=== PATIENT | female | born 1950 | race Caucasian/White ===

== ENCOUNTER → 2020-10-13 | Day surgery (SDC) | payer MEDICARE, OTHER ==
[~2020-10-13] MED LIST: ASPIRIN81 MG PO; ATORVASTATIN CA20 MG PO; CALCIUM CARBON500 MG PO; IRBESARTAN150 MG PO; IRON325 M1 PO; LANTUS 3ML100 UNITS/ SQ; METFORMIN HCL500 MG PO; MULTI-VITAMIN1 EACH PO; NIFEDIPINE ER30 M1 PO; NOVOLOG100 UNIT/1 SC; OR PHACO EYE KIT ONE; PREOP PHACO EYE KIT ONE; VITAMIN B122500 MCG PO; VITAMIN D325 MCG PO
[2020-10-13 13:00] VITALS: BP 137/71
== END | disposition home or self-care (01) ==
LOC: OR 11:51
PROVIDERS: ATTEND Ophthalmology
DX: H25.12 Age-related nuclear cataract, left eye (principal); I10 Essential (primary) hypertension; E11.9 Type 2 diabetes mellitus without complications; K76.0 Fatty (change of) liver, not elsewhere classified; E78.5 Hyperlipidemia, unspecified; Z88.2 Allergy status to sulfonamides; Z01.812 Encounter for preprocedural laboratory examination; Z20.822 Contact with and (suspected) exposure to COVID-19
CPT/HCPCS: 36415; 66984; 82948; U0002; V2632

== ENCOUNTER → 2020-10-27 | Day surgery (SDC) | payer MEDICARE, OTHER ==
[2020-10-27 14:05] VITALS: BP 121/80
== END | disposition home or self-care (01) ==
LOC: OR 12:06
PROVIDERS: ATTEND Ophthalmology
DX: H25.11 Age-related nuclear cataract, right eye (principal); I10 Essential (primary) hypertension; E78.5 Hyperlipidemia, unspecified; E11.9 Type 2 diabetes mellitus without complications; K21.9 Gastro-esophageal reflux disease without esophagitis; M19.90 Unspecified osteoarthritis, unspecified site; F41.9 Anxiety disorder, unspecified; Z88.2 Allergy status to sulfonamides; Z01.812 Encounter for preprocedural laboratory examination; Z20.822 Contact with and (suspected) exposure to COVID-19; Z79.4 Long term (current) use of insulin; Z79.82 Long term (current) use of aspirin
CPT/HCPCS: 36415; 66984; 82948; U0002; V2788